=== PATIENT | male | born 1965 | race Caucasian/White ===

== ENCOUNTER 2023-02-07 16:16 | Inpatient (IN) | payer BC ==
[2023-02-07] MEDS ORDERED: Zofran 4 MG/2 ML VIAL ONE (16:31)
[2023-02-07] MEDS ORDERED: Hydromorphone 1 mg/ml Injection ONE ×3 (16:32→18:56)
[2023-02-07] MEDS ORDERED: Sodium Chloride 0.9% 1000 ML 1,000 ML ONE (16:32)
[2023-02-07] MEDS ORDERED: Zofran 4 MG/2 ML VIAL IV ONE (16:33)
[2023-02-07] MEDS ORDERED: Sodium Chloride 0.9% 1000 ML 1,000 ML IV STA (16:33)
--- NOTE | 2023-02-07 16:54 | ERPHSYRPT ---
- History of Present Illness Time Seen by Provider: 02/07/23 16:53 Historian: patient, family Exam Limitations: no limitations Patient Subjective Stated Complaint: RUQ pain Triage Nursing Assessment: Patient ambulated back to ED and transferred self to bed. Patient A+O X 3. Patient's skin pink, warm and dry. Patient complains of RUQ pain 10/10 that started today and has gotten worse. Abdomen soft and round with BS X 4. Patient complains of N/V. Timing/Duration: yesterday, constant, worse Activities at Onset: none Quality: dullness, pressure Abdominal Pain Onset Location: RUQ Pain Radiation: no radiation Severity of Pain-Max: severe Severity of Pain-Current: moderate Modifying Factors: Improves With: rest Associated Symptoms: nausea Previous symptoms: same symptoms as today Allergies/Adverse Reactions: No Known Drug Allergies Allergy (Unverified 02/07/23 16:28) Home Medications: No Reportable Medications [No Reported Medications] 02/07/23 [History] Hx Tetanus, Diphtheria Vaccination/Date Given: No Hx Influenza Vaccination/Date Given: Yes Hx Pneumococcal Vaccination/Date Given: No Immunizations Up to Date: Yes Travel Risk - International Travel Have you traveled outside of the country in past 3 weeks: No - Coronavirus Screening Are you exhibiting any of the following symptoms?: No Close contact with a COVID-19 positive Pt in past 14-21 Days: No - Vaccine Status Have you recieved a Covid-19 vaccination: No - Review of Systems Constitutional: No Symptoms Eyes: No Symptoms Ears, Nose, & Throat: No Symptoms Respiratory: No Symptoms Cardiac: No Symptoms Abdominal/Gastrointestinal: Abdominal Pain, Nausea Genitourinary Symptoms: No Symptoms Musculoskeletal: No Symptoms Skin: No Symptoms Neurological: No Symptoms Psychological: No Symptoms Endocrine: No Symptoms Hematologic/Lymphatic: No Symptoms Immunological/Allergic: No Symptoms All Other Systems: Reviewed and Negative - Past Medical History Pertinent Past Medical History: No Neurological History: No Pertinent History ENT History: No Pertinent History Cardiac History: No Pertinent History Respiratory History: No Pertinent History Endocrine Medical History: No Pertinent History Musculoskeletal History: No Pertinent History GI Medical History: No Pertinent History History: No Pertinent History Psycho-Social History: No Pertinent History Male Reproductive Disorders: No Pertinent History - Past Surgical History Past Surgical History: Yes Neuro Surgical History: No Pertinent History Cardiac: No Pertinent History Respiratory: No Pertinent History Gastrointestinal: No Pertinent History Genitourinary: No Pertinent History Musculoskeletal: No Pertinent History Male Surgical History: Vasectomy Other Surgical History: skin cancer removed from chest - Social History Smoking Status: Never smoker Exposure to second hand smoke: No Drug Use: none Patient Lives Alone: No - Nursing Vital Signs Nursing Vital Signs: Initial Vital Signs Temperature 98.2 F 02/07/23 16:29 Pulse Rate 47 L 02/07/23 16:29 Respiratory Rate 18 02/07/23 16:29 Blood Pressure 130/75 02/07/23 16:29 O2 Sat by Pulse Oximetry 96 02/07/23 16:29 Pain Scale Pain Intensity 7 - Physical Exam General Appearance: moderate distress Eye Exam: PERRL/EOMI, eyes nml inspection Ears, Nose, Throat Exam: normal ENT inspection, pharynx normal, moist mucous membranes Neck Exam: normal inspection, non-tender Respiratory Exam: normal breath sounds, lungs clear Cardiovascular Exam: regular rate/rhythm, normal heart sounds Gastrointestinal/Abdomen Exam: soft, normal bowel sounds, tenderness (RUQ) Extremity Exam: normal inspection, normal range of motion Neurologic Exam: alert, oriented x 3, cooperative Skin Exam: normal color, warm, dry SpO2 Interpretation: normal SpO2: 96 O2 Delivery: Room Air - Course Nursing assessment & vital signs reviewed: Yes - CT Exams Abdomen/Pelvis CT Interpretation: Tele-radiologist Report, Other (Gallstones, swollen gallbladder) Ordered Tests: Active Orders 24 hr Category Date Time Status IV Insertion STAT Care 02/07/23 16:33 Active Oxygen-ED Only Nasal Cannula 2 lpm Care 02/07/23 19:02 Active ABDOMEN AND PELVIS W/0 CONTRAS [CT] Stat Exams 02/07/23 17:06 Completed AMYLASE Stat Lab 02/07/23 17:04 Completed CBC W DIFF Stat Lab 02/07/23 17:04 Completed CMP Stat Lab 02/07/23 17:04 Completed LIPASE Stat Lab 02/07/23 17:04 Completed UA W/RFX UR CULTURE Stat Lab 02/07/23 17:11 Ordered Transfer Order Routine Transfer 02/07/23 Ordered Medication Summary Discontinued Medications Generic Name Dose Route Start Last Admin Trade Name Freq PRN Reason Stop Dose Admin Hydromorphone HCl Confirm 02/07/23 16:32 Hydromorphone 1 Mg/1ml Inj 1 Mg/Ml Syringe Administered 02/07/23 16:33 Dose 1 mg .ROUTE .STK-MED ONE Hydromorphone HCl 1 mg 02/07/23 16:57 02/07/23 16:39 Hydromorphone 1 Mg/1ml Inj 1 Mg/Ml Syringe IV 02/07/23 16:58 1 mg STAT ONE Administration Hydromorphone HCl 1 mg 02/07/23 17:12 02/07/23 17:25 Hydromorphone 1 Mg/1ml Inj 1 Mg/Ml Syringe IV 02/07/23 17:13 1 mg STAT ONE Administration Hydromorphone HCl Confirm 02/07/23 17:24 Hydromorphone 1 Mg/1ml Inj 1 Mg/Ml Syringe Administered 02/07/23 17:25 Dose 1 mg .ROUTE .STK-MED ONE Hydromorphone HCl 1 mg 02/07/23 18:52 02/07/23 18:57 Hydromorphone 1 Mg/1ml Inj 1 Mg/Ml Syringe IV 02/07/23 18:53 1 mg STAT ONE Administration Hydromorphone HCl Confirm 02/07/23 18:56 Hydromorphone 1 Mg/1ml Inj 1 Mg/Ml Syringe Administered 02/07/23 18:57 Dose 1 mg .ROUTE .STK-MED ONE Sodium Chloride 1,000 mls @ 999 mls/hr 02/07/23 16:33 02/07/23 17:40 Sodium Chloride 0.9% 1000 Ml IV 02/07/23 17:33 Infused .Q1H1M STA Infusion Sodium Chloride Confirm 02/07/23 16:32 Sodium Chloride 0.9% 1000 Ml Administered 02/07/23 16:33 Dose 1,000 mls @ ud .ROUTE .STK-MED ONE Ondansetron HCl 4 mg 02/07/23 16:33 02/07/23 16:38 Ondansetron Hcl 4 Mg/2 Ml Vial IV 02/07/23 16:34 4 mg STAT ONE Administration Ondansetron HCl Confirm 02/07/23 16:31 Ondansetron Hcl 4 Mg/2 Ml Vial Administered 02/07/23 16:32 Dose 4 mg .ROUTE .STK-MED ONE Prochlorperazine Edisylate 10 mg 02/07/23 18:53 02/07/23 18:57 Prochlorperazine Edisylate 10 Mg/2 Ml Vial IV 02/07/23 18:54 10 mg STAT ONE Administration Prochlorperazine Edisylate Confirm 02/07/23 18:56 Prochlorperazine Edisylate 10 Mg/2 Ml Vial Administered 02/07/23 18:57 Dose 10 mg .ROUTE .STK-MED ONE Lab/Rad Data: Laboratory Result Diagrams 02/07/23 17:04 02/07/23 17:04 Laboratory Results 02/07/23 02/07/23 02/07/23 Range/Units 18:55 17:04 17:04 WBC (4.0-10.5) x10^3/uL RBC (4.1-5.6) x10^6/uL Hgb (12.5-18.0) g/dL Hct (42-50) % MCV (78-100) fL MCH (26-32) pg MCHC (32-36) g/dL RDW (11.5-14.0) % Plt Count (150-450) x10^3/uL MPV (7.5-11.0) fL Gran % (36.0-66.0) % Immature Gran % (Auto) (0.00-0.4) % Nucleat RBC Rel Count (0.00-0.1) % Eos # (Auto) (0-0.5) x10^3/uL Immature Gran # (Auto) (0.00-0.03) x10^3u/L Absolute Lymphs (auto) (1.0-4.6) x10^3/uL Absolute Monos (auto) (0.0-1.3) x10^3/uL Absolute Nucleated RBC (0.00-0.01) x10^3u/L Lymphocytes % (24.0-44.0) % Monocytes % (0.0-12.0) % Eosinophils % (0.00-5.0) % Basophils % (0.0-0.4) % Absolute Granulocytes (1.4-6.9) x10^3/uL Basophils # (0-0.4) x10^3/uL Sodium 142 (137-145) mmol/L Potassium 3.8 (3.5-5.1) mmol/L Chloride 104 (98-107) mmol/L Carbon Dioxide 30 (22-30) mmol/L Anion Gap 11.1 (5-15) MEQ/L BUN 20 (9-20) mg/dL Creatinine 1.08 (0.66-1.25) mg/dL Estimated GFR > 60.0 ML/MIN Glucose 112 H (74-106) mg/dL Calcium 8.4 (8.4-10.2) mg/dL Total Bilirubin 0.80 (0.2-1.3) mg/dL AST 32 (17-59) U/L ALT 21 (0-50) U/L Alkaline Phosphatase 56 (38-126) U/L Serum Total Protein 7.0 (6.3-8.2) g/dL Albumin 3.9 (3.5-5.0) g/dL Amylase 68 (30-110) U/L Lipase 82 (23-300) U/L Influenza Type A Ag NEGATIVE (NEGATIVE) Influenza Type B Ag NEGATIVE (NEGATIVE) RSV (PCR) NEGATIVE (NEGATIVE) SARS-CoV-2 (PCR) NEGATIVE (NEGATIVE) 02/07/23 Range/Units 17:04 WBC 8.3 (4.0-10.5) x10^3/uL RBC 5.58 (4.1-5.6) x10^6/uL Hgb 17.1 (12.5-18.0) g/dL Hct 51.2 H (42-50) % MCV 91.8 (78-100) fL MCH 30.6 (26-32) pg MCHC 33.4 (32-36) g/dL RDW 12.6 (11.5-14.0) % Plt Count 177 (150-450) x10^3/uL MPV 11.2 H (7.5-11.0) fL Gran % 61.0 (36.0-66.0) % Immature Gran % (Auto) 0.2 (0.00-0.4) % Nucleat RBC Rel Count 0.0 (0.00-0.1) % Eos # (Auto) 0.22 (0-0.5) x10^3/uL Immature Gran # (Auto) 0.02 (0.00-0.03) x10^3u/L Absolute Lymphs (auto) 2.31 (1.0-4.6) x10^3/uL Absolute Monos (auto) 0.63 (0.0-1.3) x10^3/uL Absolute Nucleated RBC 0.00 (0.00-0.01) x10^3u/L Lymphocytes % 28.0 (24.0-44.0) % Monocytes % 7.6 (0.0-12.0) % Eosinophils % 2.7 (0.00-5.0) % Basophils % 0.5 (0.0-0.4) % Absolute Granulocytes 5.03 (1.4-6.9) x10^3/uL Basophils # 0.04 (0-0.4) x10^3/uL Sodium (137-145) mmol/L Potassium (3.5-5.1) mmol/L Chloride (98-107) mmol/L Carbon Dioxide (22-30) mmol/L Anion Gap (5-15) MEQ/L BUN (9-20) mg/dL Creatinine (0.66-1.25) mg/dL Estimated GFR ML/MIN Glucose (74-106) mg/dL Calcium (8.4-10.2) mg/dL Total Bilirubin (0.2-1.3) mg/dL AST (17-59) U/L ALT (0-50) U/L Alkaline Phosphatase (38-126) U/L Serum Total Protein (6.3-8.2) g/dL Albumin (3.5-5.0) g/dL Amylase (30-110) U/L Lipase (23-300) U/L Influenza Type A Ag (NEGATIVE) Influenza Type B Ag (NEGATIVE) RSV (PCR) (NEGATIVE) SARS-CoV-2 (PCR) (NEGATIVE) LABS WNL - Progress Progress: improved, re-examined Progress Note: 02/07/23 20:17 Gallstones source of pain, needs admitted for pain control. Discussed with Dr. Burks, says to place in hospital for the hospitalist, surgery consult in the a.m. Dr. Isaacs agrees to put patient in the hospital. Discussed with Dr.: Aishwarya, Other (Lali Burks) Will see patient in: hospital (observation) Counseled pt/family regarding: lab results, diagnosis, rad results Medical Desision Making - Independent Historian Additional History obtained from: Spouse - Discussion of managment Care discussed with:: on-call "doc" Reviewed:: Test results, Need for additional workup Agreed on:: place in obs Will see patient: in hospital - Diagnostic Testing Diagnostic test were ordered, analyzed, and reviewed by me: Yes Radiological Interpretation: Teleradiologist Report - Risk of complications Low Risk: Low risk of morbidity from additional dx testing or treatment - Departure Departure Disposition: Observation Clinical Impression: Gallstones with biliary obstruction Condition: Stable Critical Care Time: No Referrals: DMITRY ANTONIO [Primary Care Provider] - Follow up/PCP as directed
[2023-02-07] MEDS ORDERED: Hydromorphone 1 mg/ml Injection IV ONE ×4 (16:57→21:03)
[2023-02-07 17:07] LABS: Absolute Neutrophil Ct (ANC) 5.03 x10^3/uL (1.4-6.9); BASOPHIL % 0.5 % (0.0-0.4); Basophil (Absolute #) 0.04 x10^3/uL (0-0.4); Eosinophil % 2.7 % (0.00-5.0); Eosinophil (Absolute #) 0.22 x10^3/uL (0-0.5); Hematocrit 51.2 % (42-50); Hemoglobin 17.1 g/dL (12.5-18.0); IMMATURE GRAN # 0.02 x10^3u/L (0.00-0.03); IMMATURE GRAN % 0.2 % (0.00-0.4); Lymphocyte (Absolute #) 2.31 x10^3/uL (1.0-4.6); Mean Cell Volume 91.8 fL (78-100); Mean Corpuscular Hemoglobin 30.6 pg (26-32); Mean Corpuscular Hgb Concent. 33.4 g/dL (32-36); Mean Platelet Volume 11.2 fL (7.5-11.0); Monocyte (Absolute #) 0.63 x10^3/uL (0.0-1.3); Monocytes % 7.6 % (0.0-12.0); Platelet Count 177 x10^3/uL (150-450); Red Blood Count 5.58 x10^6/uL (4.1-5.6); Red Cell Distribution Width 12.6 % (11.5-14.0); White Blood Count 8.3 x10^3/uL (4.0-10.5)
[2023-02-07 17:20] LABS: AMYLASE 68 U/L (30-110); LIPASE 82 U/L (23-300)
[2023-02-07 17:21] LABS: ALBUMIN 3.9 g/dL (3.5-5.0); ALKALINE PHOSPHATASE 56 U/L (38-126); ANION GAP 11.1 MEQ/L (5-15); BLOOD UREA NITROGEN 20 mg/dL (9-20); CHLORIDE 104 mmol/L (98-107); Calcium 8.4 mg/dL (8.4-10.2); Carbon Dioxide 30 mmol/L (22-30); Creatinine 1 1.08 mg/dL (0.66-1.25); EST GLOMERULAR FILTRATION RATE > 60.0 ML/MIN; Glucose 112 mg/dL (74-106); Potassium 3.8 mmol/L (3.5-5.1); SGOT/AST 32 U/L (17-59); SGPT/ALT 21 U/L (0-50); SODIUM 142 mmol/L (137-145)
--- NOTE | 2023-02-07 18:27 | XRAY ---
CLINICAL HISTORY:RUQ pain COMPARISON:None; TECHNIQUES:Contiguous multi-slice CT examinations of the abdomen and pelvis were acquired in the axial plane with coronal and sagittal without intravenous contrast. Total DLP-939.39 mGy*cm; CTDI-17.02 mGy; FINDINGS: Heart size is enlarged. A tiny nodule is seen in the lateral basal segment of the left lower lobe measuring 3.8 mm. Prominent vascular markings in lower lung lobes showing ground-glass attenuation mainly in the left lower lobe likely postinflammatory sequela. A mild hiatus hernia is seen. Uncomplicated descending, ascending, and sigmoid colon diverticulosis is seen. Liver- normal unenhanced liver. The gall bladder is slightly hydropic with an increased transverse dimension of 5.1 cm. 2 tiny hyperdense foci are seen in the neck region, possibly calculi or sludge balls. Advise further correlation with ultrasound of the gall bladder. Pancreas is normal in shape and contour. Peripancreatic planes appear normal. No evidence of calcification or pancreatic duct dilatation is seen. Spleen is normal in contour and attenuation. Adrenals are normal. Both kidneys are normal in size, shape and attenuation. No left renal calculi. No hydronephrosis. A tiny right renal calculus is seen measuring 3.4 mm in size. Cortical scarring of the upper pole of the left kidney is seen, possibly prior surgical changes or healed infection. Left pelviuerteric junction narrowing is seen. Multiple variable-attenuation cysts are seen in the right kidney, the largest one of these cysts measures 3.2 x 2.7 cm in size. Minimal perinephric fat stranding around both kidneys. Stomach appear normal. The appendix is normal. The urinary bladder is normal. Rectum and perirectal fat planes are normal. The bone window setting shows lumbar spondylosis. Fat-containing umbilical hernia seen. Normal-sized prostate. Mild bilateral inguinal hernia is seen. Degenerative changes in the visualized spine. IMPRESSION: 1-Hydropic gall bladder with 2 tiny hyperdense foci in the neck region, possibly calculi or sludge balls. Advise further correlation with ultrasound of the gall bladder. 2-Multiple variable-attenuation cysts in the right kidney, the largest one of these cysts measures 3.2 x 2.7 cm in size. Further evaluation with CT abdomen with IV contrast is advised. 3-Uncomplicated descending and sigmoid colon diverticulosis. 4-Small non-obstructing right renal calculus measuring about 3 mm. 5-Cardiomegaly. 6-A tiny nodule in the left lower lobe measuring 3.8 mm. 7-Rest of the findings as detailed above. Electronically Signed by: Maria Luz Felton MD. (02/07/2023 17:21:03 THERAPIST RESPIRATORY)
[2023-02-07] MEDS ORDERED: Compazine 10 MG/2 ML IV ONE (18:53)
[2023-02-07] MEDS ORDERED: Compazine 10 MG/2 ML ONE (18:56)
[2023-02-07 19:33] LABS: INFLUENZA A NEGATIVE (NEGATIVE); INFLUENZA B NEGATIVE (NEGATIVE); RESPIRATORY SYNCTIAL VIRUS NEGATIVE (NEGATIVE); SARS-CoV-2 Xpert Express NEGATIVE (NEGATIVE)
[2023-02-07] MEDS ORDERED: Hydromorphone 1 mg/ml Injection IV PRN (20:32)
[2023-02-07] MEDS ORDERED: Lactated Ringers 1,000 ML IV ONE (21:15)
[2023-02-07] MEDS: Lactated Ringers 1,000 ML IV SCH (21:18)
[2023-02-07] MEDS: HYDROMORPHONE 30 MG/30 ML-NS PCA IV PRN (21:20)
[2023-02-07] MEDS: Sodium Chloride 0.9% 1000 ML 1,000 ML IV SCH (22:34)
[2023-02-07 22:43] LABS: Appearance Clear (Clear); Bacteria None Seen /HPF (None Seen); Bilirubin Negative (Negative); Blood Negative (Negative); Epithelial Cells None Seen /HPF (None Seen); Glucose, Urine Negative (Negative); Hyaline Casts NONE SEEN /LPF (0-2); Ketones 15 (Negative); Leukocyte Esterase Negative (Negative); Nitrite Negative (Negative); Ph 5.5 (4.6-8.0); Protein,Urine Dip Trace (Negative); RBC 0-2 /HPF (0-5); Specific Gravity >=1.030 (1.005-1.030); WBC 0-2 /HPF (0-5)
[2023-02-07 22:46] LABS: ADD URINE CULTURE? NO (NO)
[2023-02-08 04:57] LABS: Hematocrit 49.5 % (42-50); Hemoglobin 16.7 g/dL (12.5-18.0); Mean Cell Volume 90.5 fL (78-100); Mean Corpuscular Hemoglobin 30.5 pg (26-32); Mean Corpuscular Hgb Concent. 33.7 g/dL (32-36); Mean Platelet Volume 10.8 fL (7.5-11.0); Platelet Count 155 x10^3/uL (150-450); Red Blood Count 5.47 x10^6/uL (4.1-5.6); Red Cell Distribution Width 12.7 % (11.5-14.0); White Blood Count 15.7 x10^3/uL (4.0-10.5)
[2023-02-08 05:10] LABS: ALBUMIN 3.7 g/dL (3.5-5.0); ALKALINE PHOSPHATASE 56 U/L (38-126); ANION GAP 10.9 MEQ/L (5-15); BLOOD UREA NITROGEN 16 mg/dL (9-20); CHLORIDE 103 mmol/L (98-107); Carbon Dioxide 26 mmol/L (22-30); Creatinine 1 0.69 mg/dL (0.66-1.25); EST GLOMERULAR FILTRATION RATE > 60.0 ML/MIN; Glucose 117 mg/dL (74-106); SGOT/AST 34 U/L (17-59); SGPT/ALT 27 U/L (0-50); SODIUM 137 mmol/L (137-145); Total Protein 6.6 g/dL (6.3-8.2)
[2023-02-08] MEDS: HYDROMORPHONE 30 MG/30 ML-NS PCA IV PRN (07:23)
[2023-02-08] MEDS: Lactated Ringers 1,000 ML IV SCH (07:28)
--- NOTE | 2023-02-08 08:11 | PCM.HP ---
History of Present Illness - Chief Complaint Chief Complaint: Gallstones. Intractable pain. History of Present Illness: is a 57 year old male who presented to the ER with sudden onset of severe RUQ abd pain radiating to the back with nausea and vomiting, symptoms began after having pizza at a information receptionist then Easter dinner the following day. He had an attack 8 months ago at an outside hospital and was advised his gallbladder could be a problem. he apparently had a f/u ultrasound and HIDA that were negative. His ct scan on arrival shows hydropic gallbladder with stone or sludge in the neck, LFTs are all normal. - Review of Systems Constitutional: No Symptoms Respiratory: No Cough, No Short Of Breath Cardiac: No Chest Pain, No Edema, No Syncope Abdominal/Gastrointestinal: Abdominal Pain, Nausea, Vomiting, No Diarrhea, No Constipation Skin: No Rash All Other Systems: Reviewed and Negative Medications & Allergies Home Medications: Home Medication List No Reportable Medications [No Reported Medications] 02/07/23 [History Confirmed 02/07/23] Allergies/Adverse Reactions: Allergies Allergy/AdvReac Type Severity Reaction Status Date / Time No Known Drug Allergies Allergy Unverified 02/07/23 20:58 - Past Medical History Past Medical History: Yes Neurological History: No Pertinent History ENT History: No Pertinent History Cardiac History: No Pertinent History Respiratory History: No Pertinent History Endocrine Medical History: No Pertinent History Musculoskelatal History: No Pertinent History GI Medical History: No Pertinent History History: No Pertinent History Pyscho-Social History: No Pertinent History Male Reproductive Disorders: No Pertinent History Comment: mild sleep apnea (does not require O2 at night). - Past Surgical History Past Surgical History: Yes Neuro Surgical History: No Pertinent History Cardiac History: No Pertinent History Respiratory Surgery: No Pertinent History GI Surgical History: No Pertinent History Genitourinary Surgical Hx: No Pertinent History Musculskeletal Surgical Hx: No Pertinent History Male Surgical History: Vasectomy Other Surgical History: skin cancer removed from chest - Social History Smoking Status: Never smoker Exposure to second hand smoke: No Alcohol: Occasionally Drug Use: none - Physical Exam Vital Signs: Vital Signs - 24 hr Temp Pulse Resp BP Pulse Ox 02/08/23 07:18 99.9 F 68 14 119/54 96 02/08/23 05:20 16 96 02/08/23 04:20 99.8 F 71 18 138/65 96 02/08/23 01:20 15 93 L 02/07/23 23:18 97.7 F 46 L 17 152/74 95 02/07/23 23:08 95 02/07/23 21:20 15 98 02/07/23 20:44 98 F 40 L 15 175/78 96 02/07/23 20:22 96 02/07/23 20:00 52 L 16 108/52 99 02/07/23 19:03 44 L 16 139/75 97 02/07/23 18:05 38 L 16 96 02/07/23 17:15 40 L 18 117/79 98 02/07/23 16:29 98.2 F 47 L 18 130/75 96 General Appearance: no apparent distress, alert Neurologic Exam: alert, oriented x 3, cooperative, normal mood/affect, nml cerebellar function, nml station & gait, sensation nml, No motor deficits Respiratory Exam: normal breath sounds, lungs clear, No respiratory distress Cardiovascular Exam: regular rate/rhythm, normal heart sounds, normal peripheral pulses Gastrointestinal/Abdomen Exam: tenderness (RUQ), No guarding, No rebound Extremity Exam: normal inspection, normal range of motion, pelvis stable Skin Exam: normal color, warm, dry, No rash Results - Labs Lab/Micro Results: Lab Results-Last 24 Hours 02/07/23 02/07/23 02/07/23 Range/Units 17:04 17:04 17:04 WBC 8.3 (4.0-10.5) x10^3/uL RBC 5.58 (4.1-5.6) x10^6/uL Hgb 17.1 (12.5-18.0) g/dL Hct 51.2 H (42-50) % MCV 91.8 (78-100) fL MCH 30.6 (26-32) pg MCHC 33.4 (32-36) g/dL RDW 12.6 (11.5-14.0) % Plt Count 177 (150-450) x10^3/uL MPV 11.2 H (7.5-11.0) fL Gran % 61.0 (36.0-66.0) % Immature Gran % (Auto) 0.2 (0.00-0.4) % Nucleat RBC Rel Count 0.0 (0.00-0.1) % Eos # (Auto) 0.22 (0-0.5) x10^3/uL Immature Gran # (Auto) 0.02 (0.00-0.03) x10^3u/L Absolute Lymphs (auto) 2.31 (1.0-4.6) x10^3/uL Absolute Monos (auto) 0.63 (0.0-1.3) x10^3/uL Absolute Nucleated RBC 0.00 (0.00-0.01) x10^3u/L Lymphocytes % 28.0 (24.0-44.0) % Monocytes % 7.6 (0.0-12.0) % Eosinophils % 2.7 (0.00-5.0) % Basophils % 0.5 (0.0-0.4) % Absolute Granulocytes 5.03 (1.4-6.9) x10^3/uL Basophils # 0.04 (0-0.4) x10^3/uL Sodium 142 (137-145) mmol/L Potassium 3.8 (3.5-5.1) mmol/L Chloride 104 (98-107) mmol/L Carbon Dioxide 30 (22-30) mmol/L Anion Gap 11.1 (5-15) MEQ/L BUN 20 (9-20) mg/dL Creatinine 1.08 (0.66-1.25) mg/dL Estimated GFR > 60.0 ML/MIN Glucose 112 H (74-106) mg/dL Calcium 8.4 (8.4-10.2) mg/dL Total Bilirubin 0.80 (0.2-1.3) mg/dL AST 32 (17-59) U/L ALT 21 (0-50) U/L Alkaline Phosphatase 56 (38-126) U/L Serum Total Protein 7.0 (6.3-8.2) g/dL Albumin 3.9 (3.5-5.0) g/dL Amylase 68 (30-110) U/L Lipase 82 (23-300) U/L Urine Color (Yellow) Urine Appearance (Clear) Urine pH (4.6-8.0) Ur Specific [place] (1.005-1.030) Urine Protein (Negative) Urine Glucose (UA) (Negative) mg/dL Urine Ketones (Negative) Urine Blood (Negative) Urine Nitrite (Negative) Urine Bilirubin (Negative) Urine Urobilinogen (0.2) mg/dL Ur Leukocyte Esterase (Negative) U Hyaline Cast (Auto) (0-2) /LPF Urine Microscopic RBC (0-5) /HPF Urine Microscopic WBC (0-5) /HPF Ur Epithelial Cells (None Seen) /HPF Urine Bacteria (None Seen) /HPF Urine Culture Reflexed (NO) Influenza Type A Ag (NEGATIVE) Influenza Type B Ag (NEGATIVE) RSV (PCR) (NEGATIVE) SARS-CoV-2 (PCR) (NEGATIVE) 02/07/23 02/07/23 02/08/23 Range/Units 18:55 22:34 04:20 WBC 15.7 H (4.0-10.5) x10^3/uL RBC 5.47 (4.1-5.6) x10^6/uL Hgb 16.7 (12.5-18.0) g/dL Hct 49.5 (42-50) % MCV 90.5 (78-100) fL MCH 30.5 (26-32) pg MCHC 33.7 (32-36) g/dL RDW 12.7 (11.5-14.0) % Plt Count 155 (150-450) x10^3/uL MPV 10.8 (7.5-11.0) fL Gran % (36.0-66.0) % Immature Gran % (Auto) (0.00-0.4) % Nucleat RBC Rel Count (0.00-0.1) % Eos # (Auto) (0-0.5) x10^3/uL Immature Gran # (Auto) (0.00-0.03) x10^3u/L Absolute Lymphs (auto) (1.0-4.6) x10^3/uL Absolute Monos (auto) (0.0-1.3) x10^3/uL Absolute Nucleated RBC (0.00-0.01) x10^3u/L Lymphocytes % (24.0-44.0) % Monocytes % (0.0-12.0) % Eosinophils % (0.00-5.0) % Basophils % (0.0-0.4) % Absolute Granulocytes (1.4-6.9) x10^3/uL Basophils # (0-0.4) x10^3/uL Sodium (137-145) mmol/L Potassium (3.5-5.1) mmol/L Chloride (98-107) mmol/L Carbon Dioxide (22-30) mmol/L Anion Gap (5-15) MEQ/L BUN (9-20) mg/dL Creatinine (0.66-1.25) mg/dL Estimated GFR ML/MIN Glucose (74-106) mg/dL Calcium (8.4-10.2) mg/dL Total Bilirubin (0.2-1.3) mg/dL AST (17-59) U/L ALT (0-50) U/L Alkaline Phosphatase (38-126) U/L Serum Total Protein (6.3-8.2) g/dL Albumin (3.5-5.0) g/dL Amylase (30-110) U/L Lipase (23-300) U/L Urine Color Dark Yellow (Yellow) Urine Appearance Clear (Clear) Urine pH 5.5 (4.6-8.0) Ur Specific [place] >=1.030 A (1.005-1.030) Urine Protein Trace A (Negative) Urine Glucose (UA) Negative (Negative) mg/dL Urine Ketones 15 A (Negative) Urine Blood Negative (Negative) Urine Nitrite Negative (Negative) Urine Bilirubin Negative (Negative) Urine Urobilinogen 1.0 A (0.2) mg/dL Ur Leukocyte Esterase Negative (Negative) U Hyaline Cast (Auto) NONE SEEN (0-2) /LPF Urine Microscopic RBC 0-2 (0-5) /HPF Urine Microscopic WBC 0-2 (0-5) /HPF Ur Epithelial Cells None Seen (None Seen) /HPF Urine Bacteria None Seen (None Seen) /HPF Urine Culture Reflexed NO (NO) Influenza Type A Ag NEGATIVE (NEGATIVE) Influenza Type B Ag NEGATIVE (NEGATIVE) RSV (PCR) NEGATIVE (NEGATIVE) SARS-CoV-2 (PCR) NEGATIVE (NEGATIVE) 02/08/23 Range/Units 04:20 WBC (4.0-10.5) x10^3/uL RBC (4.1-5.6) x10^6/uL Hgb (12.5-18.0) g/dL Hct (42-50) % MCV (78-100) fL MCH (26-32) pg MCHC (32-36) g/dL RDW (11.5-14.0) % Plt Count (150-450) x10^3/uL MPV (7.5-11.0) fL Gran % (36.0-66.0) % Immature Gran % (Auto) (0.00-0.4) % Nucleat RBC Rel Count (0.00-0.1) % Eos # (Auto) (0-0.5) x10^3/uL Immature Gran # (Auto) (0.00-0.03) x10^3u/L Absolute Lymphs (auto) (1.0-4.6) x10^3/uL Absolute Monos (auto) (0.0-1.3) x10^3/uL Absolute Nucleated RBC (0.00-0.01) x10^3u/L Lymphocytes % (24.0-44.0) % Monocytes % (0.0-12.0) % Eosinophils % (0.00-5.0) % Basophils % (0.0-0.4) % Absolute Granulocytes (1.4-6.9) x10^3/uL Basophils # (0-0.4) x10^3/uL Sodium 137 (137-145) mmol/L Potassium 4.0 (3.5-5.1) mmol/L Chloride 103 (98-107) mmol/L Carbon Dioxide 26 (22-30) mmol/L Anion Gap 10.9 (5-15) MEQ/L BUN 16 (9-20) mg/dL Creatinine 0.69 (0.66-1.25) mg/dL Estimated GFR > 60.0 ML/MIN Glucose 117 H (74-106) mg/dL Calcium 8.0 L (8.4-10.2) mg/dL Total Bilirubin 1.30 (0.2-1.3) mg/dL AST 34 (17-59) U/L ALT 27 (0-50) U/L Alkaline Phosphatase 56 (38-126) U/L Serum Total Protein 6.6 (6.3-8.2) g/dL Albumin 3.7 (3.5-5.0) g/dL Amylase (30-110) U/L Lipase (23-300) U/L Urine Color (Yellow) Urine Appearance (Clear) Urine pH (4.6-8.0) Ur Specific [place] (1.005-1.030) Urine Protein (Negative) Urine Glucose (UA) (Negative) mg/dL Urine Ketones (Negative) Urine Blood (Negative) Urine Nitrite (Negative) Urine Bilirubin (Negative) Urine Urobilinogen (0.2) mg/dL Ur Leukocyte Esterase (Negative) U Hyaline Cast (Auto) (0-2) /LPF Urine Microscopic RBC (0-5) /HPF Urine Microscopic WBC (0-5) /HPF Ur Epithelial Cells (None Seen) /HPF Urine Bacteria (None Seen) /HPF Urine Culture Reflexed (NO) Influenza Type A Ag (NEGATIVE) Influenza Type B Ag (NEGATIVE) RSV (PCR) (NEGATIVE) SARS-CoV-2 (PCR) (NEGATIVE) - Radiology Impressions Radiology Exams & Impressions: Radiology Procedures Category Date Time Status ABDOMEN AND PELVIS W/0 CONTRAS [CT] Stat Exams 02/07/23 17:06 Completed - Other Procedures and Tests Respiratory Therapy 02/07/23 22:53 Oxygen NASAL CANNULA 2 lpm Assessment/Plan (1) Biliary colic Current Visit: Yes Status: Acute Assessment & Plan: general surgery was notified from ER according to emergency physician. he is currently on dilaudid FIXED [employer] and planned for laparoscopic cholecystectomy Code(s): K80.50 - CALCULUS OF BILE DUCT W/O CHOLANGITIS OR CHOLECYST W/O OBST (2) Gallstone Current Visit: Yes Status: Acute Code(s): K80.20 - CALCULUS OF GALLBLADDER W/O CHOLECYSTITIS W/O OBSTRUCTION (3) Acute hydrops of gallbladder Current Visit: Yes Status: Acute Code(s): K82.1 - HYDROPS OF GALLBLADDER
[2023-02-08 14:00] LABS: Hematocrit 51.7 % (42-50); Hemoglobin 17.4 g/dL (12.5-18.0); Mean Cell Volume 91.8 fL (78-100); Mean Corpuscular Hemoglobin 30.9 pg (26-32); Mean Corpuscular Hgb Concent. 33.7 g/dL (32-36); Mean Platelet Volume 10.5 fL (7.5-11.0); Platelet Count 141 x10^3/uL (150-450); Red Blood Count 5.63 x10^6/uL (4.1-5.6)
[2023-02-08 14:42] LABS: BLOOD UREA NITROGEN 14 mg/dL (9-20); CHLORIDE 100 mmol/L (98-107); Calcium 8.2 mg/dL (8.4-10.2); Carbon Dioxide 31 mmol/L (22-30); Creatinine 1 0.88 mg/dL (0.66-1.25); EST GLOMERULAR FILTRATION RATE > 60.0 ML/MIN; Glucose 115 mg/dL (74-106); Potassium 4.8 mmol/L (3.5-5.1); SODIUM 135 mmol/L (137-145)
[2023-02-08 14:44] LABS: ALBUMIN 3.5 g/dL (3.5-5.0); BILIRUBIN,TOTAL 1.9 mg/dL (0.2-1.3); Direct Bilirubin 0.1 mg/dL (0.0-0.4); Total Protein 6.3 g/dL (6.3-8.2)
--- NOTE | 2023-02-08 14:44 | XRAY ---
Indication: Cholecystitis. Two-dimensional gallbladder sonogram performed. Comparison: None Gallbladder moderately distended with a few tiny gallstones, wall thickening up to 4.6 mm, and tiny pericholecystic fluid favoring cholecystitis. Common bile duct prominent up to 7.6 mm. No intrahepatic biliary distention. Pancreas not well seen due to overlying bowel gas. Right kidney measures 12.9 cm in length with 2.9 cm exophytic cyst. Impression: 1. Abnormal distended gallbladder with tiny gallstones, wall thickening, and tiny pericholecystic fluid favoring acute cholecystitis. 2. Nonvisualization pancreas. 3. Incidental right renal cyst.
--- NOTE | 2023-02-08 16:36 | XRAY ---
Indication: Pain. Gallstones. Abnormal gallbladder sonogram. Conventional MRCP performed. Comparison: None Common bile duct and biliary tree are normal in course and caliber without focal stricture, obstruction, or filling defect. Common bile duct measures 7 mm. Pancreatic duct unremarkable. Gallbladder is moderately distended with a few tiny gallstones in the dependent portion. Also abnormal gallbladder wall thickening up to 5 mm and tiny pericholecystic fluid concerning for acute cholecystitis. Visualized right kidney demonstrates at least 2 exophytic cysts, largest midpole measuring 2 cm. Remaining visualized liver, pancreas, spleen, adrenal glands, kidneys, and aorta are unremarkable. Visualized stomach and bowel loops appear nonobstructed with incidental small bladder hernia. No abnormal bone marrow signal. Impression: 1. Distended gallbladder with tiny gallstones, wall thickening, and pericholecystic fluid favoring acute cholecystitis. 2. Incidental incompletely visualized right renal cysts and small hiatal hernia. 3. Remaining MRCP is negative.
[2023-02-08] MEDS: Sodium Chloride 0.9% 1000 ML 1,000 ML IV SCH (20:20)
[2023-02-09] MEDS ORDERED: MEFOXIN 2 GM PREMIX** 2 GM/50 ML ML IV SCH (05:00)
[2023-02-09 05:35] LABS: Absolute Neutrophil Ct (ANC) 19.07 x10^3/uL (1.4-6.9); BASOPHIL % 0.1 % (0.0-0.4); Basophil (Absolute #) 0.03 x10^3/uL (0-0.4); Eosinophil (Absolute #) 0.01 x10^3/uL (0-0.5); Hematocrit 53.5 % (42-50); Hemoglobin 17.5 g/dL (12.5-18.0); IMMATURE GRAN # 0.18 x10^3u/L (0.00-0.03); IMMATURE GRAN % 0.9 % (0.00-0.4); Lymphocyte (Absolute #) 0.58 x10^3/uL (1.0-4.6); Lymphocytes % 2.8 % (24.0-44.0); Mean Cell Volume 92.4 fL (78-100); Mean Corpuscular Hemoglobin 30.2 pg (26-32); Mean Corpuscular Hgb Concent. 32.7 g/dL (32-36); Monocyte (Absolute #) 0.79 x10^3/uL (0.0-1.3); Monocytes % 3.8 % (0.0-12.0); Neutrophil % 92.4 % (36.0-66.0); Platelet Count 120 x10^3/uL (150-450); Red Blood Count 5.79 x10^6/uL (4.1-5.6); Red Cell Distribution Width 12.8 % (11.5-14.0); White Blood Count 20.7 x10^3/uL (4.0-10.5)
[2023-02-09] MEDS: Lactated Ringers 1,000 ML IV SCH ×3 (06:10→21:54)
[2023-02-09] MEDS ORDERED: Decadron 4 MG INJ ONE (06:21)
[2023-02-09] MEDS ORDERED: BRIDION 200MG/2ML IV ONE (06:21)
[2023-02-09] MEDS ORDERED: Xylocaine-Mpf 2% 5 Ml Vial ONE (06:21)
[2023-02-09] MEDS ORDERED: Zemuron 100 MG/10 ML ONE ×3 (06:21→07:42)
[2023-02-09] MEDS ORDERED: Zofran 4 MG/2 ML VIAL ONE (06:21)
[2023-02-09] MEDS ORDERED: DIPRIVAN 200 MG/20 ML IV ONE (06:21)
[2023-02-09] MEDS ORDERED: SUBLIMAZE 100 MCG/2 ML ONE ×3 (06:22→07:44)
[2023-02-09] MEDS ORDERED: Sensorcaine 0.25% 10 ML ONE ×2 (06:23→07:39)
[2023-02-09 06:26] LABS: ALBUMIN 3.7 g/dL (3.5-5.0); ALKALINE PHOSPHATASE 73 U/L (38-126); ANION GAP 12.4 MEQ/L (5-15); BLOOD UREA NITROGEN 15 mg/dL (9-20); CHLORIDE 101 mmol/L (98-107); Calcium 8.1 mg/dL (8.4-10.2); Carbon Dioxide 26 mmol/L (22-30); Creatinine 1 0.78 mg/dL (0.66-1.25); EST GLOMERULAR FILTRATION RATE > 60.0 ML/MIN; Glucose 104 mg/dL (74-106); Potassium 4.3 mmol/L (3.5-5.1); SGOT/AST 45 U/L (17-59); SGPT/ALT 47 U/L (0-50); SODIUM 135 mmol/L (137-145); Total Protein 6.8 g/dL (6.3-8.2)
[2023-02-09 06:33] LABS: Slide Review 1 YES
[2023-02-09] MEDS ORDERED: Versed 2 MG/2 ML Injection ONE (06:49)
[2023-02-09] MEDS ORDERED: PHENYLEPHRINE HCL ONE (07:18)
[2023-02-09] MEDS ORDERED: Ephedrine Sulfate 50 MG/ML ONE (07:25)
[2023-02-09] MEDS ORDERED: TORAdol 30 mg Injection ONE (08:00)
[2023-02-09] MEDS ORDERED: Lactated Ringers 1,000 ML IV ONE (08:13)
--- NOTE | 2023-02-09 08:39 | PCM.NOTE ---
Date and Time: 02/09/23 0837 OBJECTIVE DATA Vital Signs: Vital Signs - 24 hr Temp Pulse Resp BP Pulse Ox 02/09/23 07:38 99.3 F 88 17 149/80 93 L 02/09/23 07:29 93 L 02/09/23 05:53 98.2 F 75 18 141/65 96 02/09/23 04:00 98.2 F 75 18 141/65 96 02/09/23 00:00 98.6 F 78 19 155/67 96 02/08/23 19:54 98.1 F 72 18 131/74 96 02/08/23 19:28 96 02/08/23 16:00 99.1 F 64 16 137/60 92 L 02/08/23 12:00 98.0 F 70 18 126/83 93 L 02/08/23 09:20 16 92 L Pain Assessment - Last Documented Pain Intensity 3 Pain Scale Used 0-10 Pain Scale Intake and Output: Intake & Output 02/06/23 02/07/23 02/08/23 02/09/23 11:59 11:59 11:59 11:59 Intake Total 795 2294 Balance 795 2294 Weight 108 kg 108 kg Lab Results: Lab Results-Last 24 Hours 02/08/23 02/08/23 02/08/23 Range/Units 13:55 13:55 13:55 WBC 21.0 H (4.0-10.5) x10^3/uL RBC 5.63 H (4.1-5.6) x10^6/uL Hgb 17.4 (12.5-18.0) g/dL Hct 51.7 H (42-50) % MCV 91.8 (78-100) fL MCH 30.9 (26-32) pg MCHC 33.7 (32-36) g/dL RDW 13.0 (11.5-14.0) % Plt Count 141 L (150-450) x10^3/uL MPV 10.5 (7.5-11.0) fL Gran % (36.0-66.0) % Immature Gran % (Auto) (0.00-0.4) % Nucleat RBC Rel Count (0.00-0.1) % Eos # (Auto) (0-0.5) x10^3/uL Immature Gran # (Auto) (0.00-0.03) x10^3u/L Absolute Lymphs (auto) (1.0-4.6) x10^3/uL Absolute Monos (auto) (0.0-1.3) x10^3/uL Absolute Nucleated RBC (0.00-0.01) x10^3u/L Lymphocytes % (24.0-44.0) % Monocytes % (0.0-12.0) % Eosinophils % (0.00-5.0) % Basophils % (0.0-0.4) % Absolute Granulocytes (1.4-6.9) x10^3/uL Basophils # (0-0.4) x10^3/uL Sodium 135 L (137-145) mmol/L Potassium 4.8 (3.5-5.1) mmol/L Chloride 100 (98-107) mmol/L Carbon Dioxide 31 H (22-30) mmol/L Anion Gap 9.0 (5-15) MEQ/L BUN 14 (9-20) mg/dL Creatinine 0.88 (0.66-1.25) mg/dL Estimated GFR > 60.0 ML/MIN Glucose 115 H (74-106) mg/dL Calcium 8.2 L (8.4-10.2) mg/dL Total Bilirubin 1.90 H (0.2-1.3) mg/dL Direct Bilirubin 0.1 (0.0-0.4) mg/dL AST 35 (17-59) U/L ALT 27 (0-50) U/L Alkaline Phosphatase 56 (38-126) U/L Serum Total Protein 6.3 (6.3-8.2) g/dL Albumin 3.5 (3.5-5.0) g/dL Slides for Path Review 02/09/23 02/09/23 Range/Units 04:00 05:09 WBC 20.7 H (4.0-10.5) x10^3/uL RBC 5.79 H (4.1-5.6) x10^6/uL Hgb 17.5 (12.5-18.0) g/dL Hct 53.5 H (42-50) % MCV 92.4 (78-100) fL MCH 30.2 (26-32) pg MCHC 32.7 (32-36) g/dL RDW 12.8 (11.5-14.0) % Plt Count 120 L (150-450) x10^3/uL MPV 11.0 (7.5-11.0) fL Gran % 92.4 H (36.0-66.0) % Immature Gran % (Auto) 0.9 H (0.00-0.4) % Nucleat RBC Rel Count 0.0 (0.00-0.1) % Eos # (Auto) 0.01 (0-0.5) x10^3/uL Immature Gran # (Auto) 0.18 H (0.00-0.03) x10^3u/L Absolute Lymphs (auto) 0.58 L (1.0-4.6) x10^3/uL Absolute Monos (auto) 0.79 (0.0-1.3) x10^3/uL Absolute Nucleated RBC 0.00 (0.00-0.01) x10^3u/L Lymphocytes % 2.8 L (24.0-44.0) % Monocytes % 3.8 (0.0-12.0) % Eosinophils % 0.0 (0.00-5.0) % Basophils % 0.1 (0.0-0.4) % Absolute Granulocytes 19.07 H (1.4-6.9) x10^3/uL Basophils # 0.03 (0-0.4) x10^3/uL Sodium 135 L (137-145) mmol/L Potassium 4.3 (3.5-5.1) mmol/L Chloride 101 (98-107) mmol/L Carbon Dioxide 26 (22-30) mmol/L Anion Gap 12.4 (5-15) MEQ/L BUN 15 (9-20) mg/dL Creatinine 0.78 (0.66-1.25) mg/dL Estimated GFR > 60.0 ML/MIN Glucose 104 (74-106) mg/dL Calcium 8.1 L (8.4-10.2) mg/dL Total Bilirubin 2.80 H (0.2-1.3) mg/dL Direct Bilirubin (0.0-0.4) mg/dL AST 45 (17-59) U/L ALT 47 (0-50) U/L Alkaline Phosphatase 73 (38-126) U/L Serum Total Protein 6.8 (6.3-8.2) g/dL Albumin 3.7 (3.5-5.0) g/dL Slides for Path Review YES Radiology Exams: Radiology Procedures Category Date Time Status ABDOMEN AND PELVIS W/0 CONTRAS [CT] Stat Exams 02/07/23 17:06 Completed GALLBLADDER [US] Stat Exams 02/08/23 13:17 Completed MRI ABD W/O CONTRAST [MRI] Routine Exams 02/08/23 14:55 Completed Assessment/Plan (1) Acute hydrops of gallbladder Current Visit: Yes Status: Acute Assessment & Plan: S; no acute issues overnight. pain still severe. no n/v. vss nad nonlabored resps nd, soft, + north. bili up a little. direct ok yest. MRCP images reviewed without any evidence of choledocholithiasis. a/p: acute cholecystitis to OR> Taken to OR there was michael gangrenous necrotizing cholecystitis with impending rupture. there was rupture during the case. -he must stay until wbc is normalizing for IV abx and will need a 1 week course of antibiotics if continued improvement. -repeat LFTs tomorrow. Code(s): K82.1 - HYDROPS OF GALLBLADDER
--- NOTE | 2023-02-09 11:10 | OP ---
SURGERY DATE/TIME: 02/09/2023 0704 PREOPERATIVE DIAGNOSIS: Acute cholecystitis. POSTOPERATIVE DIAGNOSES: 1) Acute gangrenous cholecystitis. 2) Reducible umbilical hernia. PROCEDURES: 1) Laparoscopic cholecystectomy. 2) Primary repair of reducible umbilical hernia. SURGEON: Jeet Burks M.D. ANESTHESIA: General. ESTIMATED BLOOD LOSS: Minimal. CONDITION: Patient condition stable. COMPLICATIONS: None. SPECIMENS: 1) Swab gallbladder fluid culture.2) Gallbladder. HISTORY: The patient is a 57-year-old male that presents with a couple day history of right upper quadrant abdominal pain postprandial. Imaging consistent with acute cholecystitis. The common bile duct is a little prominent on ultrasound and then got MRCP which showed no choledocholithiasis with mild elevation of total bilirubin but the direct bilirubin was okay. Discussion was had with the patient the risk of infection, bleeding, injury to nearby structure, hernia possible need for further procedures or ERCP. He elected to proceed with surgery. FINDINGS: Gangrenous cholecystitis divided with the white load at the neck. Drain left. DESCRIPTION OF PROCEDURE: The patient is brought to the operating room. General anesthesia induced. Routinely positioned, prepped and draped. Time out performed. He received preoperative antibiotic. Veress needle inserted in left upper quadrant. Pneumoperitoneum established. A 5 mm Optiview trocar placed in the left upper quadrant. The abdomen is surveyed. There is a small about 1 cm supraumbilical hernia. A curvilinear incision was made superior to umbilicus and carried down. The hernia sac is completely dissected free. An 11 trocar is placed through the hernia defect and two additional 5 mm trocars placed in the right upper quadrant. The patient positioned. The omentum is plastered to the gallbladder but bluntly this just sweeps away and then there was obvious gangrenous necrotic cholecystitis that is not actually perforated yet so it is aspirated out and there is purulent bile. A swab is taken for culture. The gallbladder is retracted. The gallbladder is terrible and necrotic and friable and partially falls apart. The cystic duct and cystic artery were able to be dissected out. The critical view is obtained high on the neck of the gallbladder, cystic duct junction. The left upper quadrant port site is upsized to a 12 trocar site and then the neck of the gallbladder is taken with a white load SAMREEN stapler. The gallbladder is taken off of the liver bed, placed in a specimen bag and removed through the 12 trocar site. The trocar is reinserted and the right upper quadrant re-inspected. There is good hemostasis. Surgicel was applied to the gallbladder fossa. 10 mm drain is placed and brought up the right lateral port site. The 12 trocar site closed with 0 Vicryl interrupted suture passer. The hernia sac is then completely excised and there is circumferential satisfactory fascia. The umbilical sac is not needed to be mobilized so it is re-approximated with 0 interrupted suture with suture passer. The right mid abdominal trocar had been removed and then the skin is closed with 4-0 Vicryl suture. Marcaine had been injected at all the port sites. Steri-Strips and sterile dressings applied. All counts were correct. The patient tolerated the procedure well. Plan is for extubation.
[2023-02-09] MEDS: PIPERACILLIN/TAZOBACTAM 3.375 GM in Sodium Chloride 100ML MINI-BAG PLUS 100 ML IV SCH ×2 (12:23→18:36)
--- NOTE | 2023-02-09 13:04 | PCM.NOTE ---
Date and Time: 02/09/23 1258 Subjective Assessment: Pt had his cholecystectomy this morning. He is now feeling "great" with pain 1- 2/10 in RUQ. Has tolerated jello. He has been sweaty since his surgery and c/o being hot. Initial troponin pending; EKG done with some nonspecific ST changes. I discussed with cardiology and will just recheck troponin and EKG in 3 hours. Pt states he is always hot and sweats every day. - Review of Systems Constitutional: No Fever Abdominal/Gastrointestinal: Abdominal Pain Objective Exam General Appearance: no apparent distress, alert Neurologic Exam: oriented x 3, cooperative Skin Exam: normal color, No rash Respiratory Exam: normal breath sounds, lungs clear, No crackles/rales, No rhonchi, No wheezing Cardiovascular Exam: regular rate/rhythm, normal heart sounds, No murmur Gastrointestinal/Abdomen Exam: soft, other (surgical wounds are c/d/i. RENETTA drain with scant bloody drainage.), No normal bowel sounds (hypoactive but present) Extremity Exam: No pedal edema, No swelling Back Exam: normal inspection, No rash OBJECTIVE DATA Vital Signs: Vital Signs - 24 hr Temp Pulse Resp BP Pulse Ox 02/09/23 07:38 99.3 F 88 17 149/80 93 L 02/09/23 07:29 93 L 02/09/23 05:53 98.2 F 75 18 141/65 96 02/09/23 04:00 98.2 F 75 18 141/65 96 02/09/23 00:00 98.6 F 78 19 155/67 96 02/08/23 19:54 98.1 F 72 18 131/74 96 02/08/23 19:28 96 02/08/23 16:00 99.1 F 64 16 137/60 92 L Pain Assessment - Last Documented Pain Intensity 1 Pain Scale Used 0-10 Pain Scale Intake and Output: Intake & Output 02/07/23 02/08/23 02/09/23 02/10/23 11:59 11:59 11:59 11:59 Intake Total 795 2294 Output Total 50 Balance 795 2244 Weight 108 kg 108 kg Lab Results: Lab Results-Last 24 Hours 02/08/23 02/08/23 02/08/23 Range/Units 13:55 13:55 13:55 WBC 21.0 H (4.0-10.5) x10^3/uL RBC 5.63 H (4.1-5.6) x10^6/uL Hgb 17.4 (12.5-18.0) g/dL Hct 51.7 H (42-50) % MCV 91.8 (78-100) fL MCH 30.9 (26-32) pg MCHC 33.7 (32-36) g/dL RDW 13.0 (11.5-14.0) % Plt Count 141 L (150-450) x10^3/uL MPV 10.5 (7.5-11.0) fL Gran % (36.0-66.0) % Immature Gran % (Auto) (0.00-0.4) % Nucleat RBC Rel Count (0.00-0.1) % Eos # (Auto) (0-0.5) x10^3/uL Immature Gran # (Auto) (0.00-0.03) x10^3u/L Absolute Lymphs (auto) (1.0-4.6) x10^3/uL Absolute Monos (auto) (0.0-1.3) x10^3/uL Absolute Nucleated RBC (0.00-0.01) x10^3u/L Lymphocytes % (24.0-44.0) % Monocytes % (0.0-12.0) % Eosinophils % (0.00-5.0) % Basophils % (0.0-0.4) % Absolute Granulocytes (1.4-6.9) x10^3/uL Basophils # (0-0.4) x10^3/uL Sodium 135 L (137-145) mmol/L Potassium 4.8 (3.5-5.1) mmol/L Chloride 100 (98-107) mmol/L Carbon Dioxide 31 H (22-30) mmol/L Anion Gap 9.0 (5-15) MEQ/L BUN 14 (9-20) mg/dL Creatinine 0.88 (0.66-1.25) mg/dL Estimated GFR > 60.0 ML/MIN Glucose 115 H (74-106) mg/dL Calcium 8.2 L (8.4-10.2) mg/dL Total Bilirubin 1.90 H (0.2-1.3) mg/dL Direct Bilirubin 0.1 (0.0-0.4) mg/dL AST 35 (17-59) U/L ALT 27 (0-50) U/L Alkaline Phosphatase 56 (38-126) U/L Serum Total Protein 6.3 (6.3-8.2) g/dL Albumin 3.5 (3.5-5.0) g/dL Slides for Path Review 02/09/23 02/09/23 Range/Units 04:00 05:09 WBC 20.7 H (4.0-10.5) x10^3/uL RBC 5.79 H (4.1-5.6) x10^6/uL Hgb 17.5 (12.5-18.0) g/dL Hct 53.5 H (42-50) % MCV 92.4 (78-100) fL MCH 30.2 (26-32) pg MCHC 32.7 (32-36) g/dL RDW 12.8 (11.5-14.0) % Plt Count 120 L (150-450) x10^3/uL MPV 11.0 (7.5-11.0) fL Gran % 92.4 H (36.0-66.0) % Immature Gran % (Auto) 0.9 H (0.00-0.4) % Nucleat RBC Rel Count 0.0 (0.00-0.1) % Eos # (Auto) 0.01 (0-0.5) x10^3/uL Immature Gran # (Auto) 0.18 H (0.00-0.03) x10^3u/L Absolute Lymphs (auto) 0.58 L (1.0-4.6) x10^3/uL Absolute Monos (auto) 0.79 (0.0-1.3) x10^3/uL Absolute Nucleated RBC 0.00 (0.00-0.01) x10^3u/L Lymphocytes % 2.8 L (24.0-44.0) % Monocytes % 3.8 (0.0-12.0) % Eosinophils % 0.0 (0.00-5.0) % Basophils % 0.1 (0.0-0.4) % Absolute Granulocytes 19.07 H (1.4-6.9) x10^3/uL Basophils # 0.03 (0-0.4) x10^3/uL Sodium 135 L (137-145) mmol/L Potassium 4.3 (3.5-5.1) mmol/L Chloride 101 (98-107) mmol/L Carbon Dioxide 26 (22-30) mmol/L Anion Gap 12.4 (5-15) MEQ/L BUN 15 (9-20) mg/dL Creatinine 0.78 (0.66-1.25) mg/dL Estimated GFR > 60.0 ML/MIN Glucose 104 (74-106) mg/dL Calcium 8.1 L (8.4-10.2) mg/dL Total Bilirubin 2.80 H (0.2-1.3) mg/dL Direct Bilirubin (0.0-0.4) mg/dL AST 45 (17-59) U/L ALT 47 (0-50) U/L Alkaline Phosphatase 73 (38-126) U/L Serum Total Protein 6.8 (6.3-8.2) g/dL Albumin 3.7 (3.5-5.0) g/dL Slides for Path Review YES Radiology Exams: Radiology Procedures Category Date Time Status ABDOMEN AND PELVIS W/0 CONTRAS [CT] Stat Exams 02/07/23 17:06 Completed GALLBLADDER [US] Stat Exams 02/08/23 13:17 Completed MRI ABD W/O CONTRAST [MRI] Routine Exams 02/08/23 14:55 Completed Assessment/Plan (1) Gallstones with biliary obstruction Current Visit: Yes Status: Acute Assessment & Plan: s/p cholecystectomy, POD 0. I spoke with the surgeon and the GB was gangrenous and necrotic, though not perforated. He left a drain in and wants pt on 1 week of antibiotics. If the WBC are decreasing then can change to PO antibiotics. Code(s): K80.21 - CALCULUS OF GALLBLADDER W/O CHOLECYSTITIS WITH OBSTRUCTION (2) Leukocytosis Current Visit: Yes Status: Acute Qualifiers: Leukocytosis type: unspecified Qualified Code(s): D72.829 - Elevated white blood cell count, unspecified Code(s): D72.829 - ELEVATED WHITE BLOOD CELL COUNT, UNSPECIFIED (3) Diaphoresis Current Visit: Yes Status: Chronic Assessment & Plan: Checking EKG and troponin x 2. Code(s): R61 - GENERALIZED HYPERHIDROSIS
--- NOTE | 2023-02-09 15:08 | CONS ---
CONSULT DATE: 02/08/2023 HISTORY: This is a 57-year-old gentleman who I saw on 02/08/2023 at bedside for increasing abdominal pain and concern for acute cholecystitis. The patient reports that he has had some gallbladder difficulties in the distant past, over the past couple of years but that he changed his diet and has been very healthy avoiding the greasy fatty food and when he did this he did not seem to have the significant gallbladder pain that he had prior. Over the weekend he had multiple events and he did eat many fatty and greasy food items that he stated gave him progressively worse pain and after the Wednesday brunch he started having very severe pain and that brought him to the emergency room and then he was admitted to the hospital. The patient had a CT scan. I reviewed the CT scan read and discussed this with the patient. The CT scan did recommend repeating his ultrasound and so I did order this and on the report it states that the duct prominent, there are stones in the gallbladder and the neck. His bilirubin and his liver function tests and labs have also been personally reviewed. He does have a leukocytosis. He has a mild hyperbilirubinemia at 1.3 and so we have also ordered an MRCP and that is pending. PAST MEDICAL HISTORY: Reviewed. He is generally very healthy. PAST SURGICAL HISTORY: Reviewed. MEDICATIONS: His medications have been reviewed. These are in the medication reconciliation. ALLERGIES: NKDA. PHYSICAL EXAMINATION: GENERAL: No acute distress. CVS: Regular rate and rhythm. PULMONARY: Nonlabored. ABDOMEN: Soft, tender to palpation in the right upper quadrant. He has no rebound and no guarding. EXTREMITIES: He is ambulatory. DIAGNOSIS: Acute cholecystitis with cholelithiasis and mild enlargement of the common bile duct with borderline bilirubin. PLAN: NPO. IV fluids. He has received antibiotics. Will continue his medical care, obtain an MRCP which has been ordered and will be completed today and based on these results likely laparoscopic cholecystectomy with admission possible open. I have discussed with him briefly about the procedure details as well. He understands the plan. He agrees with this. His pain is being controlled. He is being rehydrated with IV fluids and we will follow up with him after his MRI for final surgical planning.
[2023-02-09] MEDS: NORCO 5/325 MG PO PRN (15:45)
[2023-02-09] MEDS: Compazine 10 MG/2 ML IV PRN (19:02)
[2023-02-09] MEDS: Mylicon 80MG PO PRN (22:09)
[2023-02-10] MEDS: PIPERACILLIN/TAZOBACTAM 3.375 GM in Sodium Chloride 100ML MINI-BAG PLUS 100 ML IV SCH ×4 (00:38→17:19)
[2023-02-10] MEDS: Mylicon 80MG PO PRN ×2 (02:23→15:17)
[2023-02-10 06:09] LABS: ALBUMIN 3.4 g/dL (3.5-5.0); BILIRUBIN,TOTAL 1.9 mg/dL (0.2-1.3); Direct Bilirubin 0.4 mg/dL (0.0-0.4); Total Protein 6.5 g/dL (6.3-8.2)
[2023-02-10 07:44] LABS: Hematocrit 49.3 % (42-50); Hemoglobin 16.6 g/dL (12.5-18.0); Mean Cell Volume 91.1 fL (78-100); Mean Corpuscular Hemoglobin 30.7 pg (26-32); Mean Corpuscular Hgb Concent. 33.7 g/dL (32-36); Mean Platelet Volume 11.6 fL (7.5-11.0); Platelet Count 116 x10^3/uL (150-450); Red Blood Count 5.41 x10^6/uL (4.1-5.6); White Blood Count 16.5 x10^3/uL (4.0-10.5)
[2023-02-10 07:50] LABS: ANION GAP 12.6 MEQ/L (5-15); BLOOD UREA NITROGEN 20 mg/dL (9-20); CHLORIDE 102 mmol/L (98-107); Calcium 8.3 mg/dL (8.4-10.2); Carbon Dioxide 25 mmol/L (22-30); Creatinine 1 0.78 mg/dL (0.66-1.25); EST GLOMERULAR FILTRATION RATE > 60.0 ML/MIN; Glucose 114 mg/dL (74-106); SODIUM 136 mmol/L (137-145)
[2023-02-10] MEDS: NORCO 5/325 MG PO PRN ×3 (08:03→21:12)
[2023-02-10] MEDS: Lactated Ringers 1,000 ML IV SCH ×2 (09:17→21:12)
--- NOTE | 2023-02-10 09:22 | PCM.NOTE ---
Date and Time: 02/10/23919 Subjective Assessment: patient has some more discomfort and bloating this am, tolerating diet. has passed some minimal flatus since surgery Objective Exam General Appearance: no apparent distress Neurologic Exam: alert, oriented x 3 Respiratory Exam: normal breath sounds, lungs clear, No respiratory distress Cardiovascular Exam: regular rate/rhythm, normal heart sounds Gastrointestinal/Abdomen Exam: soft, normal bowel sounds, distention, other (scant blood tinged fluid in RENETTA, dressings c/d/i), No guarding, No rebound Extremity Exam: normal inspection, normal range of motion OBJECTIVE DATA Vital Signs: Vital Signs - 24 hr Temp Pulse Resp BP Pulse Ox 02/10/23 07:35 94 L 02/10/23 07:32 98.9 F 70 16 132/72 91 L 02/10/23 04:00 98.4 F 66 18 121/60 91 L 02/09/23 23:55 98.4 F 71 16 118/65 93 L 02/09/23 20:00 99.6 F 78 18 128/62 92 L 02/09/23 19:07 91 L 02/09/23 16:00 98.7 F 83 17 141/90 90 L 02/09/23 12:00 97.5 F 65 17 125/67 93 L Pain Assessment - Last Documented Pain Intensity 0 Pain Scale Used 0-10 Pain Scale Intake and Output: Intake & Output 02/07/23 02/08/23 02/09/23 02/10/23 11:59 11:59 11:59 11:59 Intake Total 795 2294 3521 Output Total 50 560 Balance 795 0884 2961 Weight 108 kg 108 kg Lab Results: Lab Results-Last 24 Hours 02/09/23 02/09/23 02/10/23 Range/Units 12:30 15:35 04:47 WBC (4.0-10.5) x10^3/uL RBC (4.1-5.6) x10^6/uL Hgb (12.5-18.0) g/dL Hct (42-50) % MCV (78-100) fL MCH (26-32) pg MCHC (32-36) g/dL RDW (11.5-14.0) % Plt Count (150-450) x10^3/uL MPV (7.5-11.0) fL Sodium (137-145) mmol/L Potassium (3.5-5.1) mmol/L Chloride (98-107) mmol/L Carbon Dioxide (22-30) mmol/L Anion Gap (5-15) MEQ/L BUN (9-20) mg/dL Creatinine (0.66-1.25) mg/dL Estimated GFR ML/MIN Glucose (74-106) mg/dL Calcium (8.4-10.2) mg/dL Total Bilirubin 1.90 H (0.2-1.3) mg/dL Direct Bilirubin 0.4 (0.0-0.4) mg/dL AST 37 (17-59) U/L ALT 42 (0-50) U/L Alkaline Phosphatase 73 (38-126) U/L Troponin I < 0.012 < 0.012 (0.000-0.034) ng/mL Serum Total Protein 6.5 (6.3-8.2) g/dL Albumin 3.4 L (3.5-5.0) g/dL 02/10/23 02/10/23 Range/Units 05:00 05:00 WBC 16.5 H (4.0-10.5) x10^3/uL RBC 5.41 (4.1-5.6) x10^6/uL Hgb 16.6 (12.5-18.0) g/dL Hct 49.3 (42-50) % MCV 91.1 (78-100) fL MCH 30.7 (26-32) pg MCHC 33.7 (32-36) g/dL RDW 13.0 (11.5-14.0) % Plt Count 116 L (150-450) x10^3/uL MPV 11.6 H (7.5-11.0) fL Sodium 136 L (137-145) mmol/L Potassium 4.0 (3.5-5.1) mmol/L Chloride 102 (98-107) mmol/L Carbon Dioxide 25 (22-30) mmol/L Anion Gap 12.6 (5-15) MEQ/L BUN 20 (9-20) mg/dL Creatinine 0.78 (0.66-1.25) mg/dL Estimated GFR > 60.0 ML/MIN Glucose 114 H (74-106) mg/dL Calcium 8.3 L (8.4-10.2) mg/dL Total Bilirubin (0.2-1.3) mg/dL Direct Bilirubin (0.0-0.4) mg/dL AST (17-59) U/L ALT (0-50) U/L Alkaline Phosphatase (38-126) U/L Troponin I (0.000-0.034) ng/mL Serum Total Protein (6.3-8.2) g/dL Albumin (3.5-5.0) g/dL Radiology Exams: Radiology Procedures Category Date Time Status GALLBLADDER [US] Stat Exams 02/08/23 13:17 Completed MRI ABD W/O CONTRAST [MRI] Routine Exams 02/08/23 14:55 Completed Multi-Disciplinary Progress Notes: Multi-Disciplinary Progress Notes 02/09/23 13:40 Case Management Note by Jael Chu S/W PATIENT. DENIES ANY NEW NEEDS FOR DC. HE PLANS TO RETURN HOME WITH AT [facility] AT [facility]. Initialized on 02/09/23 13:40 - END OF NOTE Assessment/Plan (1) Gangrene of gallbladder in cholecystitis Current Visit: Yes Status: Acute Assessment & Plan: wbc improving, encouraged ambulation. will continue zosyn and follow labs, per surgery want to see wbc normalized prior to discharge. Code(s): K82.A1 - GANGRENE OF GALLBLADDER IN CHOLECYSTITIS (2) Acute hydrops of gallbladder Current Visit: Yes Status: Acute Code(s): K82.1 - HYDROPS OF GALLBLADDER
[2023-02-11] MEDS: PIPERACILLIN/TAZOBACTAM 3.375 GM in Sodium Chloride 100ML MINI-BAG PLUS 100 ML IV SCH ×5 (00:01→23:15)
[2023-02-11 05:28] LABS: BASOPHIL % 0.1 % (0.0-0.4); Basophil (Absolute #) 0.01 x10^3/uL (0-0.4); Eosinophil % 0.3 % (0.00-5.0); Eosinophil (Absolute #) 0.04 x10^3/uL (0-0.5); Hematocrit 48.2 % (42-50); Hemoglobin 16.4 g/dL (12.5-18.0); IMMATURE GRAN # 0.06 x10^3u/L (0.00-0.03); IMMATURE GRAN % 0.4 % (0.00-0.4); Lymphocyte (Absolute #) 0.72 x10^3/uL (1.0-4.6); Lymphocytes % 5.2 % (24.0-44.0); Mean Cell Volume 90.3 fL (78-100); Mean Corpuscular Hemoglobin 30.7 pg (26-32); Mean Platelet Volume 11.9 fL (7.5-11.0); Monocyte (Absolute #) 0.74 x10^3/uL (0.0-1.3); Monocytes % 5.3 % (0.0-12.0); Neutrophil % 88.7 % (36.0-66.0); Platelet Count 140 x10^3/uL (150-450); Red Blood Count 5.34 x10^6/uL (4.1-5.6); White Blood Count 13.9 x10^3/uL (4.0-10.5)
[2023-02-11 05:44] LABS: ALBUMIN 3.4 g/dL (3.5-5.0); ALKALINE PHOSPHATASE 74 U/L (38-126); ANION GAP 13.8 MEQ/L (5-15); BLOOD UREA NITROGEN 22 mg/dL (9-20); CHLORIDE 104 mmol/L (98-107); Calcium 8.1 mg/dL (8.4-10.2); Carbon Dioxide 22 mmol/L (22-30); Direct Bilirubin 0.6 mg/dL (0.0-0.4); EST GLOMERULAR FILTRATION RATE > 60.0 ML/MIN; Glucose 90 mg/dL (74-106); Potassium 3.6 mmol/L (3.5-5.1); SGOT/AST 42 U/L (17-59); SGPT/ALT 51 U/L (0-50); SODIUM 136 mmol/L (137-145); Total Protein 6.5 g/dL (6.3-8.2)
[2023-02-11] MEDS: Lactated Ringers 1,000 ML IV SCH ×2 (06:04→18:27)
--- NOTE | 2023-02-11 08:35 | PCM.NOTE ---
Date and Time: 02/11/23 0834 Subjective Assessment: patient continues to tolerate po intake, passing flatus. pain is controlled. no new c/o Objective Exam General Appearance: no apparent distress Neurologic Exam: alert, oriented x 3 Respiratory Exam: normal breath sounds, lungs clear, No respiratory distress Cardiovascular Exam: regular rate/rhythm, normal heart sounds Gastrointestinal/Abdomen Exam: soft, normal bowel sounds, other (RENETTA with scant serosang. fluid), No distention Extremity Exam: normal inspection, normal range of motion OBJECTIVE DATA Vital Signs: Vital Signs - 24 hr Temp Pulse Resp BP Pulse Ox 02/11/23 05:45 57 L 157/81 02/11/23 04:00 97.5 F 78 18 172/85 94 L 02/11/23 00:06 98.7 F 57 L 16 160/86 98 02/10/23 23:39 97.4 F 64 20 163/78 93 L 02/10/23 20:00 97.8 F 62 16 173/90 95 02/10/23 19:13 97 02/10/23 16:00 98.5 F 65 17 172/86 98 02/10/23 11:08 98.8 F 68 16 131/92 94 L Pain Assessment - Last Documented Pain Intensity 0 Pain Scale Used He-Vera Faces Intake and Output: Intake & Output 02/08/23 02/09/23 02/10/23 02/11/23 11:59 11:59 11:59 11:59 Intake Total 795 2294 3521 3758 Output Total 50 560 5 Balance 795 2244 2961 3753 Weight 108 kg 108 kg Lab Results: Lab Results-Last 24 Hours 02/11/23 02/11/23 Range/Units 04:24 04:24 WBC 13.9 H (4.0-10.5) x10^3/uL RBC 5.34 (4.1-5.6) x10^6/uL Hgb 16.4 (12.5-18.0) g/dL Hct 48.2 (42-50) % MCV 90.3 (78-100) fL MCH 30.7 (26-32) pg MCHC 34.0 (32-36) g/dL RDW 13.0 (11.5-14.0) % Plt Count 140 L (150-450) x10^3/uL MPV 11.9 H (7.5-11.0) fL Gran % 88.7 H (36.0-66.0) % Immature Gran % (Auto) 0.4 (0.00-0.4) % Nucleat RBC Rel Count 0.0 (0.00-0.1) % Eos # (Auto) 0.04 (0-0.5) x10^3/uL Immature Gran # (Auto) 0.06 H (0.00-0.03) x10^3u/L Absolute Lymphs (auto) 0.72 L (1.0-4.6) x10^3/uL Absolute Monos (auto) 0.74 (0.0-1.3) x10^3/uL Absolute Nucleated RBC 0.00 (0.00-0.01) x10^3u/L Lymphocytes % 5.2 L (24.0-44.0) % Monocytes % 5.3 (0.0-12.0) % Eosinophils % 0.3 (0.00-5.0) % Basophils % 0.1 (0.0-0.4) % Absolute Granulocytes 12.30 H (1.4-6.9) x10^3/uL Basophils # 0.01 (0-0.4) x10^3/uL Sodium 136 L (137-145) mmol/L Potassium 3.6 (3.5-5.1) mmol/L Chloride 104 (98-107) mmol/L Carbon Dioxide 22 (22-30) mmol/L Anion Gap 13.8 (5-15) MEQ/L BUN 22 H (9-20) mg/dL Creatinine 0.80 (0.66-1.25) mg/dL Estimated GFR > 60.0 ML/MIN Glucose 90 (74-106) mg/dL Calcium 8.1 L (8.4-10.2) mg/dL Total Bilirubin 2.20 H (0.2-1.3) mg/dL Direct Bilirubin 0.6 H (0.0-0.4) mg/dL AST 42 (17-59) U/L ALT 51 H (0-50) U/L Alkaline Phosphatase 74 (38-126) U/L Serum Total Protein 6.5 (6.3-8.2) g/dL Albumin 3.4 L (3.5-5.0) g/dL Multi-Disciplinary Progress Notes: Multi-Disciplinary Progress Notes 02/10/23 10:11 Case Management Note by Jael Chu S/W PATIENT. HE CONTINUES TO DENY ANY NEW NEEDS AT TIME OF DC. HE PLANS TO RETURN HOME AT [facility] WITH . Initialized on 02/10/23 10:11 - END OF NOTE Assessment/Plan (1) Gangrene of gallbladder in cholecystitis Current Visit: Yes Status: Acute Assessment & Plan: wbc improving, clinically doing well. dispo to home when ok with surgery. Code(s): K82.A1 - GANGRENE OF GALLBLADDER IN CHOLECYSTITIS (2) Acute hydrops of gallbladder Current Visit: Yes Status: Acute Code(s): K82.1 - HYDROPS OF GALLBLADDER
[2023-02-11] MEDS: NORCO 5/325 MG PO PRN ×2 (08:48→16:13)
[2023-02-11] MEDS: Mylicon 80MG PO PRN ×2 (08:56→13:22)
[2023-02-11] MEDS: Compazine 10 MG/2 ML IV PRN (15:49)
[2023-02-11] MEDS ORDERED: Apresoline 25 MG TABLET PO PRN (20:08)
[2023-02-11] MEDS ORDERED: Apresoline 25 MG TABLET PO SCH (22:00)
[2023-02-12] MEDS: NORCO 5/325 MG PO PRN ×3 (00:13→09:49)
[2023-02-12] MEDS: Mylicon 80MG PO PRN ×3 (00:13→07:58)
[2023-02-12] MEDS: Lactated Ringers 1,000 ML IV SCH (04:05)
[2023-02-12 05:02] LABS: BASOPHIL % 0.5 % (0.0-0.4); Basophil (Absolute #) 0.04 x10^3/uL (0-0.4); Eosinophil % 1.5 % (0.00-5.0); Eosinophil (Absolute #) 0.13 x10^3/uL (0-0.5); Hematocrit 49.9 % (42-50); Hemoglobin 16.8 g/dL (12.5-18.0); IMMATURE GRAN # 0.06 x10^3u/L (0.00-0.03); IMMATURE GRAN % 0.7 % (0.00-0.4); Lymphocyte (Absolute #) 0.79 x10^3/uL (1.0-4.6); Lymphocytes % 9.2 % (24.0-44.0); Mean Cell Volume 89.4 fL (78-100); Mean Corpuscular Hemoglobin 30.1 pg (26-32); Mean Corpuscular Hgb Concent. 33.7 g/dL (32-36); Mean Platelet Volume 11.1 fL (7.5-11.0); Neutrophil % 81.1 % (36.0-66.0); Platelet Count 144 x10^3/uL (150-450); Red Blood Count 5.58 x10^6/uL (4.1-5.6); Red Cell Distribution Width 12.9 % (11.5-14.0); White Blood Count 8.6 x10^3/uL (4.0-10.5)
[2023-02-12 05:12] LABS: ALBUMIN 3.3 g/dL (3.5-5.0); ALKALINE PHOSPHATASE 64 U/L (38-126); ANION GAP 9.7 MEQ/L (5-15); BLOOD UREA NITROGEN 15 mg/dL (9-20); CHLORIDE 102 mmol/L (98-107); Calcium 7.9 mg/dL (8.4-10.2); Carbon Dioxide 26 mmol/L (22-30); Creatinine 1 0.81 mg/dL (0.66-1.25); EST GLOMERULAR FILTRATION RATE > 60.0 ML/MIN; Glucose 89 mg/dL (74-106); Potassium 3.3 mmol/L (3.5-5.1); SGOT/AST 27 U/L (17-59); SGPT/ALT 40 U/L (0-50); SODIUM 134 mmol/L (137-145); Total Protein 6.4 g/dL (6.3-8.2)
[2023-02-12] MEDS: PIPERACILLIN/TAZOBACTAM 3.375 GM in Sodium Chloride 100ML MINI-BAG PLUS 100 ML IV SCH (06:23)
[2023-02-12 07:21] VITALS: BP 161/83; PULSE 53; O2SAT 96
--- NOTE | 2023-02-12 08:13 | PCM.DS ---
Discharge Summary Date of Admission: 02/09/23 07:04 Admitting Physician: CASSY WISEMAN Consults: Consults on Case 02/08/23 05:44 Consult Surgery ROUTINE Primary Care Provider: DMITRY ANTONIO Allergies Allergies No Known Drug Allergies Allergy (Unverified 02/07/23 20:58) Hospital Summary - Hospital Course Hospital Course: patient admitted with hydrops of gallbladder and severe ruq pain and nausea/vomiting, had gangrenous GB in surgery that ruptured during removal. wbc elevated postop and kept for IV abx therapy. patient is feeling better, tolerating po intake. had a bowel movement yesterday, wbc normalized today, he is afebrile and has scant serosang. drainage in [place] - Vitals & Intake/Output Vital Signs: Vital Signs Temperature 97.8 F 02/12/23 07:00 Pulse Rate 53 L 02/12/23 07:00 Respiratory Rate 16 02/12/23 07:00 Blood Pressure 161/83 02/12/23 07:00 O2 Sat by Pulse Oximetry 96 02/12/23 07:00 Intake & Output: Intake & Output 02/09/23 02/10/23 02/11/23 02/12/23 11:59 11:59 11:59 11:59 Intake Total 2294 3521 3858 3562 Output Total 50 560 5 25 Balance 2244 2961 3853 3537 Weight 108 kg - Lab Result Diagrams: 02/12/23 04:11 02/12/23 04:11 Lab Results-Last 24 Hrs: Lab Results-Last 24 Hours 02/12/23 02/12/23 Range/Units 04:11 04:11 WBC 8.6 (4.0-10.5) x10^3/uL RBC 5.58 (4.1-5.6) x10^6/uL Hgb 16.8 (12.5-18.0) g/dL Hct 49.9 (42-50) % MCV 89.4 (78-100) fL MCH 30.1 (26-32) pg MCHC 33.7 (32-36) g/dL RDW 12.9 (11.5-14.0) % Plt Count 144 L (150-450) x10^3/uL MPV 11.1 H (7.5-11.0) fL Gran % 81.1 H (36.0-66.0) % Immature Gran % (Auto) 0.7 H (0.00-0.4) % Nucleat RBC Rel Count 0.0 (0.00-0.1) % Eos # (Auto) 0.13 (0-0.5) x10^3/uL Immature Gran # (Auto) 0.06 H (0.00-0.03) x10^3u/L Absolute Lymphs (auto) 0.79 L (1.0-4.6) x10^3/uL Absolute Monos (auto) 0.60 (0.0-1.3) x10^3/uL Absolute Nucleated RBC 0.00 (0.00-0.01) x10^3u/L Lymphocytes % 9.2 L (24.0-44.0) % Monocytes % 7.0 (0.0-12.0) % Eosinophils % 1.5 (0.00-5.0) % Basophils % 0.5 (0.0-0.4) % Absolute Granulocytes 7.00 H (1.4-6.9) x10^3/uL Basophils # 0.04 (0-0.4) x10^3/uL Sodium 134 L (137-145) mmol/L Potassium 3.3 L (3.5-5.1) mmol/L Chloride 102 (98-107) mmol/L Carbon Dioxide 26 (22-30) mmol/L Anion Gap 9.7 (5-15) MEQ/L BUN 15 (9-20) mg/dL Creatinine 0.81 (0.66-1.25) mg/dL Estimated GFR > 60.0 ML/MIN Glucose 89 (74-106) mg/dL Calcium 7.9 L (8.4-10.2) mg/dL Total Bilirubin 1.70 H (0.2-1.3) mg/dL AST 27 (17-59) U/L ALT 40 (0-50) U/L Alkaline Phosphatase 64 (38-126) U/L Serum Total Protein 6.4 (6.3-8.2) g/dL Albumin 3.3 L (3.5-5.0) g/dL Micro Results-Entire Visit: Microbiology 02/09/23 07:40 Anaerobic Culture - Final Gallbladder Not Reportable Anaerobic Culture Result 1 - Final Not Reportable Anaerobic Culture Result 3 - Final Not Reportable Anaerobic Culture Result 4 - Final Not Reportable Anaerobic Bacterial Sensitivity - Final Not Reportable - Procedures and Test Procedures and Tests throughout Hospitalization: Therapy Orders & Screens 02/07/23 22:53 Oxygen NASAL CANNULA 2 lpm Comment: Diagnosis: Gallstones. Intractable pain. 02/09/23 12:18 EKG ROUTINE Comment: Diagnosis: Gallstones. Intractable pain. Discharge Exam General Appearance: no apparent distress Neurologic Exam: alert, oriented x 3 Respiratory Exam: normal breath sounds, lungs clear, No respiratory distress Cardiovascular Exam: regular rate/rhythm, normal heart sounds Gastrointestinal/Abdomen Exam: soft, normal bowel sounds, No distention, No guarding, No rebound Extremity Exam: normal inspection, normal range of motion Skin Exam: normal color, warm, dry Final Diagnosis/Problem List - Final Discharge Diagnosis/Problem (1) Gangrene of gallbladder in cholecystitis Current Visit: Yes Status: Acute Code(s): K82.A1 - GANGRENE OF GALLBLADDER IN CHOLECYSTITIS (2) Acute hydrops of gallbladder Current Visit: Yes Status: Acute Code(s): K82.1 - HYDROPS OF GALLBLADDER - Discharge Disposition: Home, Self-Care Condition: Stable Prescriptions: New Hydrocodone/Acetaminophen [Hydrocodone-Acetamin 7.5-325] 1 each PO Q6H 7 Days #20 tablet MDD 4 pills Follow up with: ALFRED MESA MD [ACTIVE STAFF] - (2 week follow up )
== END 2023-02-12 10:20 | disposition home or self-care (01) | DRG 419 ==
LOC: ED 16:16 → MED SURG 20:30 → OBSVTOIN 02-09 07:04 → ED 02-09 16:16 → MED SURG 02-09 20:30
PROVIDERS: ADMIT Family Medicine; ATTEND Family Medicine
PROC: 0FT44ZZ Resection of Gallbladder, Percutaneous Endoscopic Approach (ICD-10-PCS; principal; 2023-02-09)
PROC: 0WQF0ZZ Repair Abdominal Wall, Open Approach (ICD-10-PCS; 2023-02-09)
DX: K82.A1 Gangrene of gallbladder in cholecystitis (principal); K82.1 Hydrops of gallbladder; K80.50 Calculus of bile duct without cholangitis or cholecystitis without obstruction; K80.20 Calculus of gallbladder without cholecystitis without obstruction; K42.9 Umbilical hernia without obstruction or gangrene; D72.829 Elevated white blood cell count, unspecified; R61 Generalized hyperhidrosis; Z20.828 Contact with and (suspected) exposure to other viral communicable diseases; Z85.828 Personal history of other malignant neoplasm of skin
CPT/HCPCS: 0241U; 36000; 36415; 47562; 49591; 74176; 74181; 76705; 80048; 80053; 80076; 81001; 82150; 83690; 84484; 85025; 85027; 87075; 93005; 93268; 94760; 94762; 96374; 96375; 96376; 99285; J0694; J1100; J1170; J1885; J2250; J2370; J2405; J2704; J3010; A9270-GY; G0378